=== PATIENT | female | born 1990 | race Two or more races ===

== ENCOUNTER 2021-03-02 21:33 | Emergency (ER) | payer OTHER ==
[~2021-03-02] VITALS: Ht 154.9 cm; Wt 47.6 kg
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
[2021-03-02] MEDS ORDERED: HYDROCODONE/APAP 5/325MG TABLET PO ONE (23:30)
[2021-03-02] MEDS ORDERED: HYDROCODONE/APAP 5/325MG TABLET ONE (23:34)
--- NOTE | 2021-03-03 00:04 | NUR ---
[facility] AT BEDSIDE'
--- NOTE | 2021-03-03 00:29 | NUR ---
[facility] AT BEDSIDE
[2021-03-03] MEDS ORDERED: HYDR-4209 PO (00:51)
--- NOTE | 2021-03-03 00:56 | NUR ---
Patient discharged to home in stable condition. Written and verbal after care instructions given. Patient verbalizes understanding of instruction. Pt ambulatory with a steady gait
[2021-03-03 03:03] VITALS: BP 118/76
== END 2021-03-03 00:56 | disposition home or self-care (01) ==
LOC: ER 21:33
DX: S30.1XXA Contusion of abdominal wall, initial encounter (principal); S80.11XA Contusion of right lower leg, initial encounter; S40.021A Contusion of right upper arm, initial encounter; S80.212A Abrasion, left knee, initial encounter; Z91.040 Latex allergy status; Y08.89XA Assault by other specified means, initial encounter; Y93.89 Activity, other specified; Y92.89 Other specified places as the place of occurrence of the external cause; Y99.8 Other external cause status